=== PATIENT | female | born 1935 | race Caucasian/White ===

== ENCOUNTER 2016-09-07 01:34 | Emergency (ER) | payer MEDICARE, OTHER | END 2016-09-07 05:43 | disposition home or self-care (01) | LOC: ER1 01:34 | DX: N39.0 Urinary tract infection, site not specified (principal); E11.9 Type 2 diabetes mellitus without complications; E78.5 Hyperlipidemia, unspecified; I10 Essential (primary) hypertension; K21.9 Gastro-esophageal reflux disease without esophagitis; Z90.710 Acquired absence of both cervix and uterus; Z90.49 Acquired absence of other specified parts of digestive tract; Z90.89 Acquired absence of other organs | CPT/HCPCS: 36415; 81001; 96372; 99284; J0696 ==

== ENCOUNTER 2016-09-09 02:45 | Emergency (ER) | payer MEDICARE, OTHER ==
[2016-09-09 08:15] LABS: HEMOGLOBIN 12.4 gm/dl (12.3-15.3); RED BLOOD COUNT 4.11 M/UL (4.00-5.10); WHITE BLOOD COUNT 13.9 K/UL (4.5-11.0)
== END 2016-09-09 10:10 | disposition home or self-care (01) ==
LOC: ER1 02:45
PROVIDERS: Student in an Organized Health Care Education/Training Program
DX: N39.0 Urinary tract infection, site not specified (principal); E11.9 Type 2 diabetes mellitus without complications; I10 Essential (primary) hypertension; Z88.1 Allergy status to other antibiotic agents; Z88.2 Allergy status to sulfonamides; Z88.8 Allergy status to other drugs, medicaments and biological substances; Z79.84 Long term (current) use of oral hypoglycemic drugs; Z79.899 Other long term (current) drug therapy
CPT/HCPCS: 36415; 80053; 81001; 85025; 87086; 96361; 96365; 96375; 99283; J0696; J2270; J2405; J7050

== ENCOUNTER → 2016-09-13 | Outpatient (CLI) | payer MEDICARE, OTHER | LOC: OPSV 08:44 | DX: N39.0 Urinary tract infection, site not specified (principal) | CPT/HCPCS: 96372; J0696 ==

== ENCOUNTER → 2016-09-14 | Outpatient (CLI) | payer MEDICARE, OTHER ==
[~2016-09-14] VITALS: Ht 167.6 cm; Wt 78.0 kg
== END ==
LOC: OPSV 08:51
DX: N39.0 Urinary tract infection, site not specified (principal)
CPT/HCPCS: 96372; J0696

== ENCOUNTER 2020-10-29 19:09 | Emergency (ER) | payer MEDICARE, OTHER ==
[~2020-10-29 19:09] MED LIST: ACCUPRIL 20 MG20 MG PO; ACCUPRIL20 MG PO; ATORVASTATIN CA10 MG PO; BACTRIM DS TAB1 EACH PO; BASAGLAR K100 UNIT/1 SC; CIPRO500 MG PO; DITROPAN 5 MG TA5 MG PO; DOXYCYCLINE HY100 MG PO; ECOTRIN81 MG PO; FLORANEX GRANU1 EACH PO; GLUCOTROL XL 22.5 MG PO; HIPREX1 GM PO; IMDUR ER TAB 3030 MG PO; KEFLEX500 MG PO; LANTUS SOL100 UNIT/1 SQ; LEVOFLOXACIN250 MG PO; LIPITOR TAB 1010 MG PO; MORPHINE SULFAT15 M1 PO; NITROSTAT0.4 MG SL; NORCO 5-325 TA1 EACH PO; NORVASC 5 MG TAB5 MG PO; NORVASC10 MG PO; OMNICEF 300 MG300 MG PO; PREMARIN VAG CR30 GM EXT; PROTONIX40 MG PO; PYRIDIUM100 MG PO; PYRIDIUM200 MG PO; TENORMIN 25 MG25 MG PO; TOLTERODINE TART2 MG PO; ULTRAM50 MG PO; VITAMIN D250000 UNIT PO; ZANTAC150 MG PO; ZOFRAN ODT 4 MG4 MG PO; ZOFRAN4 MG PO
[2020-10-29] MEDS ORDERED: CEFDINIR300 MG PO (20:39)
[2020-10-29] MEDS ORDERED: ONDANSETRON ODT4 MG SL (20:39)
[2020-10-29] MEDS ORDERED: PYRIDIUM200 MG PO (20:39)
== END 2020-10-29 20:58 | disposition home or self-care (01) ==
LOC: ER1 19:09
DX: N30.01 Acute cystitis with hematuria (principal); R60.0 Localized edema; E11.9 Type 2 diabetes mellitus without complications; I10 Essential (primary) hypertension; E78.00 Pure hypercholesterolemia, unspecified; Z90.49 Acquired absence of other specified parts of digestive tract; Z90.710 Acquired absence of both cervix and uterus; Z88.2 Allergy status to sulfonamides; Z88.0 Allergy status to penicillin; Z88.1 Allergy status to other antibiotic agents; Z88.8 Allergy status to other drugs, medicaments and biological substances
CPT/HCPCS: 81001; 87086; 99283

== ENCOUNTER 2020-12-03 05:58 | Emergency (ER) | payer MEDICARE ==
[~2020-12-03 05:58] MED LIST changes: +CEFDINIR300 MG PO; +ONDANSETRON ODT4 MG SL
[2020-12-03] MEDS ORDERED: OMNICEF 300 MG300 MG PO (07:11)
== END 2020-12-03 07:38 | disposition home or self-care (01) ==
LOC: ER1 05:58
DX: N30.90 Cystitis, unspecified without hematuria (principal); E11.9 Type 2 diabetes mellitus without complications; I10 Essential (primary) hypertension; Z87.440 Personal history of urinary (tract) infections
CPT/HCPCS: 81001; 87077; 87086; 96374; 99283; J0696

== ENCOUNTER 2021-01-28 02:52 | Emergency (ER) | payer MEDICARE ==
[2021-01-28] MEDS ORDERED: CEFDINIR300 MG PO (03:22)
== END 2021-01-28 04:20 | disposition home or self-care (01) ==
LOC: ER1 02:52
DX: N39.0 Urinary tract infection, site not specified (principal); T50.915A Adverse effect of multiple unspecified drugs, medicaments and biological substances, initial encounter; E11.9 Type 2 diabetes mellitus without complications; Z90.49 Acquired absence of other specified parts of digestive tract; Z88.8 Allergy status to other drugs, medicaments and biological substances
CPT/HCPCS: 81001; 87086; 96372; 99283; J0696

== ENCOUNTER 2021-03-29 11:48 | Emergency (ER) | payer MEDICARE ==
[2021-03-29] MEDS ORDERED: CYCLOBENZAPRINE10 MG PO (15:47)
== END 2021-03-29 15:51 | disposition home or self-care (01) ==
LOC: ER1 11:48
DX: M51.34 Other intervertebral disc degeneration, thoracic region (principal); M50.30 Other cervical disc degeneration, unspecified cervical region; I12.9 Hypertensive chronic kidney disease with stage 1 through stage 4 chronic kidney disease, or unspecified chronic kidney disease; N18.9 Chronic kidney disease, unspecified; E11.22 Type 2 diabetes mellitus with diabetic chronic kidney disease; Z90.49 Acquired absence of other specified parts of digestive tract; Z90.710 Acquired absence of both cervix and uterus; Z85.038 Personal history of other malignant neoplasm of large intestine
CPT/HCPCS: 71045; 72125; 72128; 93005; 99284

== ENCOUNTER 2021-05-13 01:52 | Emergency (ER) | payer MEDICARE ==
[~2021-05-13 01:52] MED LIST changes: +CYCLOBENZAPRINE10 MG PO
== END 2021-05-13 02:35 | disposition home or self-care (01) ==
LOC: ER1 01:52
DX: R33.9 Retention of urine, unspecified (principal); I10 Essential (primary) hypertension; E11.9 Type 2 diabetes mellitus without complications; Z79.4 Long term (current) use of insulin
CPT/HCPCS: 99283

== ENCOUNTER 2021-05-23 12:25 | Emergency (ER) | payer MEDICARE ==
[2021-05-23 13:17] LABS: HEMOGLOBIN 13.4 gm/dl (12.3-15.3); RED BLOOD COUNT 4.38 M/UL (4.00-5.10); WHITE BLOOD COUNT 8.2 K/UL (4.5-11.0)
[2021-05-23] MEDS ORDERED: OMNICEF 300 MG300 MG PO (14:35)
== END 2021-05-23 15:15 | disposition home or self-care (01) ==
LOC: ER1 12:25
PROVIDERS: Emergency Medicine
DX: N39.0 Urinary tract infection, site not specified (principal); I10 Essential (primary) hypertension; E11.9 Type 2 diabetes mellitus without complications; Z90.49 Acquired absence of other specified parts of digestive tract
CPT/HCPCS: 80048; 81001; 82962; 83605; 85025; 87040; 99283

== ENCOUNTER 2021-07-12 02:10 | Emergency (ER) | payer MEDICARE ==
[2021-07-12 03:41] LABS: HEMOGLOBIN 11.2 gm/dl (12.3-15.3); RED BLOOD COUNT 3.71 M/UL (4.00-5.10); WHITE BLOOD COUNT 14.9 K/UL (4.5-11.0)
[2021-07-12] MEDS ORDERED: DOXYCYCLINE MO100 MG PO (05:55)
== END 2021-07-12 06:03 | disposition home or self-care (01) ==
LOC: ER1 02:10
PROVIDERS: Physician Assistant
DX: N39.0 Urinary tract infection, site not specified (principal); E11.9 Type 2 diabetes mellitus without complications; Z79.4 Long term (current) use of insulin; Z88.2 Allergy status to sulfonamides; Z88.1 Allergy status to other antibiotic agents
CPT/HCPCS: 80053; 81001; 85025; 87086; 99283

== ENCOUNTER 2021-08-16 05:49 | Emergency (ER) | payer MEDICARE ==
[~2021-08-16 05:49] MED LIST changes: +DOXYCYCLINE MO100 MG PO
[2021-08-16] MEDS ORDERED: MONISTAT 315 GM VG (08:05)
== END 2021-08-16 08:22 | disposition home or self-care (01) ==
LOC: ER1 05:49
DX: N39.0 Urinary tract infection, site not specified (principal); B37.3 Candidiasis of vulva and vagina
CPT/HCPCS: 81001; 87086; 99283

== ENCOUNTER 2021-08-18 23:57 | Emergency (ER) | payer MEDICARE ==
[~2021-08-18 23:57] MED LIST changes: +MONISTAT 315 GM VG
[2021-08-19 03:42] LABS: HEMOGLOBIN 11.5 gm/dl (12.3-15.3); RED BLOOD COUNT 3.84 M/UL (4.00-5.10); WHITE BLOOD COUNT 16.3 K/UL (4.5-11.0)
== END 2021-08-19 05:00 | disposition home or self-care (01) ==
LOC: ER1 23:57
PROVIDERS: Physician Assistant
DX: R30.0 Dysuria (principal); R10.30 Lower abdominal pain, unspecified; G89.29 Other chronic pain; E11.9 Type 2 diabetes mellitus without complications; Z79.4 Long term (current) use of insulin
CPT/HCPCS: 80053; 81001; 85025; 87077; 87086; 87186; 99283

== ENCOUNTER 2021-09-09 05:31 | Emergency (ER) | payer MEDICARE ==
[2021-09-09 07:46] LABS: HEMOGLOBIN 11.7 gm/dl (12.3-15.3); RED BLOOD COUNT 3.89 M/UL (4.00-5.10); WHITE BLOOD COUNT 15.6 K/UL (4.5-11.0)
[2021-09-09] MEDS ORDERED: PYRIDIUM100 MG PO (11:52)
== END 2021-09-09 12:04 | disposition home or self-care (01) ==
LOC: ER1 05:31
PROVIDERS: Physician Assistant Medical
DX: R10.30 Lower abdominal pain, unspecified (principal); R30.0 Dysuria; E11.9 Type 2 diabetes mellitus without complications; I10 Essential (primary) hypertension; Z90.710 Acquired absence of both cervix and uterus
CPT/HCPCS: 80053; 81001; 83605; 85025; 87086; 99284

== ENCOUNTER 2021-10-10 00:53 | Emergency (ER) | payer MEDICARE | END 2021-10-10 04:00 | disposition home or self-care (01) | LOC: ER1 00:53 | DX: N39.0 Urinary tract infection, site not specified (principal); B37.49 Other urogenital candidiasis; Z79.4 Long term (current) use of insulin; I10 Essential (primary) hypertension | CPT/HCPCS: 81001; 96372; 99283; J1885 ==

== ENCOUNTER → 2022-01-08 | Outpatient (CLI) | payer MEDICARE | LOC: EXRD 11:06 | DX: N18.31 Chronic kidney disease, stage 3a (principal) | CPT/HCPCS: 76775 ==

== ENCOUNTER → 2022-01-08 | Outpatient (CLI) | payer MEDICARE ==
[2022-01-08 13:16] LABS: HEMOGLOBIN 11.9 gm/dl (12.3-15.3); RED BLOOD COUNT 3.97 M/UL (4.00-5.10); WHITE BLOOD COUNT 7.1 K/UL (4.5-11.0)
== END ==
LOC: LAB 12:17
PROVIDERS: Internal Medicine Nephrology
DX: N18.31 Chronic kidney disease, stage 3a (principal); E78.5 Hyperlipidemia, unspecified
CPT/HCPCS: 36415; 80053; 82550; 82570; 83970; 84100; 84156; 85025

== ENCOUNTER 2022-01-18 02:01 | Emergency (ER) | payer MEDICARE ==
[2022-01-18 03:13] LABS: HEMOGLOBIN 11.6 gm/dl (12.3-15.3); RED BLOOD COUNT 3.83 M/UL (4.00-5.10); WHITE BLOOD COUNT 10.7 K/UL (4.5-11.0)
[2022-01-18] MEDS ORDERED: CEFDINIR300 MG PO (03:53)
== END 2022-01-18 03:54 | disposition home or self-care (01) ==
LOC: ER1 02:01
PROVIDERS: Physician Assistant
DX: N39.0 Urinary tract infection, site not specified (principal); E11.22 Type 2 diabetes mellitus with diabetic chronic kidney disease; I12.9 Hypertensive chronic kidney disease with stage 1 through stage 4 chronic kidney disease, or unspecified chronic kidney disease; N18.9 Chronic kidney disease, unspecified; Z90.49 Acquired absence of other specified parts of digestive tract; Z90.89 Acquired absence of other organs
CPT/HCPCS: 80048; 81001; 85025; 87086; 99283

== ENCOUNTER 2022-02-07 03:20 | Emergency (ER) | payer MEDICARE ==
[2022-02-07] MEDS ORDERED: KEFLEX CAP 250250 MG PO (05:12)
[2022-02-07] MEDS ORDERED: HYDROCODON-ACE1 EAC4 PO (05:12)
== END 2022-02-07 05:37 | disposition home or self-care (01) ==
LOC: ER1 03:20
DX: N39.0 Urinary tract infection, site not specified (principal)
CPT/HCPCS: 81001; 87077; 87086; 87186; 99284

== ENCOUNTER 2022-02-19 02:33 | Emergency (ER) | payer MEDICARE ==
[~2022-02-19 02:33] MED LIST changes: +HYDROCODON-ACE1 EAC4 PO; +KEFLEX CAP 250250 MG PO
== END 2022-02-19 05:25 | disposition home or self-care (01) ==
LOC: ER1 02:33
DX: R39.89 Other symptoms and signs involving the genitourinary system (principal)
CPT/HCPCS: 99283; J1170; J2405

== ENCOUNTER 2022-02-25 15:58 | Emergency (ER) | payer MEDICARE ==
[2022-02-25] MEDS ORDERED: DIFLUCAN150 MG PO (21:59)
[2022-02-25] MEDS ORDERED: DOXYCYCLINE HY100 M2 PO (21:59)
== END 2022-02-25 22:24 | disposition home or self-care (01) ==
LOC: ER1 15:58
DX: N30.90 Cystitis, unspecified without hematuria (principal)
CPT/HCPCS: 81001; 87086; 99284